=== PATIENT | female | born 1930 | race Caucasian/White ===

== ENCOUNTER 2020-02-21 15:15 | Observation (INO) ==
[2020-02-21 16:05] LABS: Basophils % 0.6 %; Eosinophils # 0.1 K/mcL (0.0-0.6); Eosinophils % 1.3 %; Hematocrit 31.5 % (35.3-44.9); Hemoglobin 10.2 g/dL (11.5-15.4); Immature Granulocytes % 0.4 % (0-4); Lymphocytes # 1.3 K/mcL (0.6-4.6); Lymphocytes % 18.6 %; Mean Corpuscular HGB Conc 32.4 g/dL (31.6-35.5); Mean Corpuscular Hemoglobin 30.1 pg (28.0-33.3); Mean Corpuscular Volume 92.9 fL (83.0-100.0); Mean Platelet Volume 10.6 fL (9.4-12.4); Monocytes # 0.8 K/mcL (0.0-1.3); Neutrophils # 4.7 K/mcL (1.6-8.9); Platelet Count 308 K/mcL (140-400); Red Blood Count 3.39 M/mcL (3.82-4.97); Red Cell Distribution Width 15.5 % (11.5-14.5); Segmented Neutrophils % 68.1 %; White Blood Count 6.9 K/mcL (4.3-11.1)
[2020-02-21 16:18] LABS: Bilirubin,Urine Negative (Negative); Blood,Urine Negative (Negative); Clarity,Urine Clear (Clear); Color,Urine Yellow (Yellow); Glucose,Urine (UA) Normal (Normal); Ketones,Urine Negative (Negative); Leukocyte Esterase,Urine Negative (Negative); Nitrite,Urine Negative (Negative); PH,Urine 7.5 pH Units (5.0-8.0); Protein,Urine Negative (Neg-Trace); Specific Gravity,Urine 1.015 (1.010-1.025); Urobilinogen,Urine Normal (Normal)
[2020-02-21 16:24] LABS: BUN/Creatinine Ratio 16 (6-26); Blood Urea Nitrogen 15 mg/dL (8-23); Calcium 9.4 mg/dL (8.6-10.3); Carbon Dioxide 29 mEq/L (23-29); Chloride 98 mEq/L (98-107); Glucose 63 mg/dL (70-105); Osmolality,Calculated 277 (280-300); Potassium 4.3 mEq/L (3.5-5.1); Sodium 134 mEq/L (136-145); eGFR For African Americans > 60 (> 60); eGFR For Non-African Americans 55 (> 60)
[2020-02-21 16:31] LABS: Troponin I 0.04 ng/mL (< 0.04)
[2020-02-21] MEDS ORDERED: Aspirin 81 MG TAB.CHEW PO STA (16:42)
[2020-02-21] MEDS ORDERED: Aspirin 81 MG TAB.CHEW ONE (16:57)
[2020-02-21] MEDS ORDERED: Ondansetron ODT 4 MG TAB.RAPDIS SL PRN (17:35)
[2020-02-21] MEDS ORDERED: Naloxone 0.4 MG/ML INJ IVP PRN (17:35)
[2020-02-21] MEDS: *HR* LORazepam 1 MG TABLET PO SCH (21:56)
[2020-02-22 04:32] LABS: Basophils # 0.1 K/mcL (0.0-0.2); Basophils % 0.8 %; Eosinophils # 0.2 K/mcL (0.0-0.6); Eosinophils % 3.1 %; Hematocrit 28.9 % (35.3-44.9); Hemoglobin 9.2 g/dL (11.5-15.4); Immature Granulocytes % 0.5 % (0-4); Lymphocytes # 2.1 K/mcL (0.6-4.6); Lymphocytes % 33.7 %; Mean Corpuscular HGB Conc 31.8 g/dL (31.6-35.5); Mean Corpuscular Hemoglobin 29.9 pg (28.0-33.3); Mean Corpuscular Volume 93.8 fL (83.0-100.0); Mean Platelet Volume 11.2 fL (9.4-12.4); Monocytes # 0.8 K/mcL (0.0-1.3); Monocytes % 13.6 %; Neutrophils # 2.9 K/mcL (1.6-8.9); Platelet Count 281 K/mcL (140-400); Red Blood Count 3.08 M/mcL (3.82-4.97); Red Cell Distribution Width 15.8 % (11.5-14.5); Segmented Neutrophils % 48.3 %; White Blood Count 6.1 K/mcL (4.3-11.1)
[2020-02-22 06:10] LABS: Calcium 8.9 mg/dL (8.6-10.3)
[2020-02-22] MEDS: *HR* LORazepam 1 MG TABLET PO SCH (07:57)
[2020-02-22] MEDS ORDERED: Artificial Tears SOLN 15 ML BOTTLE BOTH EYES PRN (08:06)
[2020-02-22] MEDS ORDERED: Folic Acid 1 MG TABLET PO SCH (09:00)
[2020-02-22] MEDS ORDERED: hydroCHLOROthiazide 25 MG TABLET PO SCH (09:00)
[2020-02-22] MEDS ORDERED: Aspirin Enteric Coated 81 MG Tablet PO SCH (09:00)
[2020-02-22] MEDS ORDERED: Cholecalciferol (D-3) 1,000 UNIT (25MCG) TABLET PO SCH (09:00)
[2020-02-22 09:48] LABS: Chol/HDL Ratio 5.8 (0-4.9)
[2020-02-22 10:48] VITALS: BP 95/41
== END 2020-02-22 12:15 | disposition other institution (70) ==
LOC: EMEROOPIK 15:15 → INPPIK 15:15
PROVIDERS: ADMIT Family Medicine; ATTEND Family Medicine

== ENCOUNTER 2020-10-30 11:03 | Observation (INO) ==
[2020-10-30] MEDS ORDERED: Isovue-370 500 ML BOTTLE IVP ONE (11:06)
[2020-10-30 11:45] LABS: Hematocrit 35.9 % (35.3-44.9); Hemoglobin 11.5 g/dL (11.5-15.4); Mean Corpuscular Hemoglobin 29.5 pg (28.0-33.3); Mean Corpuscular Volume 92.1 fL (83.0-100.0); Mean Platelet Volume 11.5 fL (9.4-12.4); Platelet Count 325 K/mcL (140-400); Red Cell Distribution Width 15.1 % (11.5-14.5); White Blood Count 12.5 K/mcL (4.3-11.1)
[2020-10-30 11:56] LABS: Activated Partial Thrombo Time 26.6 Seconds (26.0-36.0); INR 1.1; Prothrombin Time 12.8 Seconds (9.4-12.1)
[2020-10-30] MEDS ORDERED: *HR* Dextrose 50 % in Water (Syg) 50 ML SYRINGE IVP ONE (12:01)
[2020-10-30 12:05] LABS: BUN/Creatinine Ratio 15 (6-26); Blood Urea Nitrogen 17 mg/dL (8-23); Calcium 7.9 mg/dL (8.6-10.3); Carbon Dioxide 32 mEq/L (23-29); Chloride 94 mEq/L (98-107); Glucose 38 mg/dL (70-105); Osmolality,Calculated 282 (280-300); Potassium 3.4 mEq/L (3.5-5.1); Sodium 137 mEq/L (136-145); Troponin I < 0.03 ng/mL (< 0.04); eGFR For African Americans 57 (> 60); eGFR For Non-African Americans 47 (> 60)
[2020-10-30] MEDS ORDERED: *HR* Dextrose 50 % in Water (Syg) 50 ML SYRINGE ONE (12:05)
[2020-10-30] MEDS: D5% in 0.9% NACL 1,000 ML IVC SCH ×2 (12:51→18:42)
[2020-10-30] MEDS ORDERED: Acetaminophen 325 MG TABLET PO PRN (13:18)
[2020-10-30] MEDS ORDERED: Naloxone 0.4 MG/ML INJ IVP PRN (13:18)
[2020-10-30] MEDS ORDERED: *HR* Dextrose 50 % in Water (Vial) 50 ML VIAL IVP PRN (13:30)
[2020-10-30] MEDS ORDERED: Dextrose Gel 15 GM/37.5 ML TUBE PO PRN ×2 (13:30)
[2020-10-30] MEDS ORDERED: D5% in Water 1,000 ML IVC PRN (13:30)
[2020-10-30] MEDS ORDERED: Insulin LISPRO 300 UNITS/3 ML VIAL SUBQ SCH (16:30)
[2020-10-30 18:21] LABS: Bilirubin,Urine Negative (Negative); Blood,Urine Negative (Negative); Clarity,Urine Clear (Clear); Color,Urine Yellow (Yellow); Glucose,Urine (UA) Normal (Normal); Ketones,Urine Negative (Negative); Leukocyte Esterase,Urine Negative (Negative); Nitrite,Urine Negative (Negative); Protein,Urine Negative (Neg-Trace); Specific Gravity,Urine 1.015 (1.010-1.025); Urobilinogen,Urine Normal (Normal)
[2020-10-30 18:36] LABS: Amphetamine Screen,Urine Negative ng/mL (Cutoff=1000); Barbiturate Screen,Urine Negative ng/mL (Cutoff=200); Benzodiazepines Screen,Urine Negative ng/mL (Cutoff=200); Cannabinoid Screen,Urine Negative ng/mL (Cutoff = 50); Cocaine Screen,Urine Negative ng/mL (Cutoff= 300); Opiate Screen,Urine Negative ng/mL (Cutoff=300); Phencyclidine Screen,Urine Negative ng/mL (Cutoff=25)
[2020-10-31] MEDS: D5% in 0.9% NACL 1,000 ML IVC SCH (03:17)
[2020-10-31] MEDS ORDERED: Aspirin Enteric Coated 81 MG Tablet PO SCH (08:00)
[2020-10-31 08:49] LABS: Basophils # 0.1 K/mcL (0.0-0.2); Basophils % 0.6 %; Eosinophils # 0.3 K/mcL (0.0-0.6); Eosinophils % 3.2 %; Hematocrit 33.1 % (35.3-44.9); Hemoglobin 10.1 g/dL (11.5-15.4); Immature Granulocytes % 0.4 % (0-4); Lymphocytes # 3.4 K/mcL (0.6-4.6); Lymphocytes % 33.2 %; Mean Corpuscular HGB Conc 30.5 g/dL (31.6-35.5); Mean Corpuscular Hemoglobin 29.1 pg (28.0-33.3); Mean Corpuscular Volume 95.4 fL (83.0-100.0); Mean Platelet Volume 11.7 fL (9.4-12.4); Monocytes % 9.5 %; Neutrophils # 5.5 K/mcL (1.6-8.9); Platelet Count 293 K/mcL (140-400); Red Blood Count 3.47 M/mcL (3.82-4.97); Red Cell Distribution Width 15.4 % (11.5-14.5); Segmented Neutrophils % 53.1 %; White Blood Count 10.3 K/mcL (4.3-11.1)
[2020-10-31 09:06] LABS: Calcium 7.4 mg/dL (8.6-10.3); Potassium 3.8 mEq/L (3.5-5.1)
[2020-10-31] MEDS: Isosorbide MONOnitrate (24 HR) 30 MG TAB.ER.24H PO SCH (09:42)
[2020-10-31] MEDS: lisinopriL 20 MG TABLET PO SCH (09:42)
[2020-10-31] MEDS: Magnesium Oxide 400 MG TABLET PO SCH (09:42)
[2020-10-31] MEDS: Folic Acid 1 MG TABLET PO SCH (09:43)
[2020-10-31] MEDS: Insulin LISPRO 300 UNITS/3 ML VIAL SUBQ SCH ×3 (09:48→17:00)
[2020-10-31 15:32] LABS: Estimated Average Glucose 103 mg/dl; Hemoglobin A1C 5.2 %
[2020-11-01 07:43] VITALS: BP 170/76
[2020-11-01] MEDS: Insulin LISPRO 300 UNITS/3 ML VIAL SUBQ SCH ×2 (08:01→11:34)
[2020-11-01] MEDS: Folic Acid 1 MG TABLET PO SCH (08:07)
[2020-11-01] MEDS: Magnesium Oxide 400 MG TABLET PO SCH (08:08)
[2020-11-01] MEDS: Isosorbide MONOnitrate (24 HR) 30 MG TAB.ER.24H PO SCH (08:08)
[2020-11-01] MEDS: lisinopriL 20 MG TABLET PO SCH (08:08)
== END 2020-11-01 11:41 | disposition other institution (70) ==
LOC: INPPIK 11:03 → EMEROOPIK 11:03 → INPPIK 14:31
PROVIDERS: ADMIT Pharmacist; ATTEND Pharmacist

== ENCOUNTER 2020-10-31 16:10 | Inpatient (IN) ==
[2020-11-01] MEDS ORDERED: Dextrose Gel 15 GM/37.5 ML TUBE PO PRN ×2 (11:26)
[2020-11-01] MEDS ORDERED: D5% in Water 1,000 ML IVC PRN (11:26)
[2020-11-01] MEDS ORDERED: *HR* Dextrose 50 % in Water (Vial) 50 ML VIAL IVP PRN (11:26)
[2020-11-01] MEDS: Insulin LISPRO 300 UNITS/3 ML VIAL SUBQ SCH ×2 (11:59→16:49)
[2020-11-01 12:46] LABS: Basophils # 0.1 K/mcL (0.0-0.2); Basophils % 0.7 %; Eosinophils # 0.4 K/mcL (0.0-0.6); Eosinophils % 4.1 %; Hematocrit 30.7 % (35.3-44.9); Hemoglobin 9.7 g/dL (11.5-15.4); Immature Granulocytes % 0.3 % (0-4); Lymphocytes # 3.5 K/mcL (0.6-4.6); Lymphocytes % 37.3 %; Mean Corpuscular HGB Conc 31.6 g/dL (31.6-35.5); Mean Corpuscular Hemoglobin 29.5 pg (28.0-33.3); Mean Corpuscular Volume 93.3 fL (83.0-100.0); Mean Platelet Volume 11.2 fL (9.4-12.4); Monocytes # 0.8 K/mcL (0.0-1.3); Neutrophils # 4.6 K/mcL (1.6-8.9); Platelet Count 294 K/mcL (140-400); Red Blood Count 3.29 M/mcL (3.82-4.97); Red Cell Distribution Width 15.2 % (11.5-14.5); Segmented Neutrophils % 49.6 %; White Blood Count 9.4 K/mcL (4.3-11.1)
[2020-11-02] MEDS ORDERED: Acetaminophen 325 MG TABLET PO PRN (07:36)
[2020-11-02 07:40] LABS: Basophils # 0.1 K/mcL (0.0-0.2); Basophils % 0.9 %; Eosinophils # 0.4 K/mcL (0.0-0.6); Eosinophils % 5.5 %; Hematocrit 29.5 % (35.3-44.9); Hemoglobin 9.2 g/dL (11.5-15.4); Immature Granulocytes % 0.4 % (0-4); Lymphocytes % 38.3 %; Mean Corpuscular HGB Conc 31.2 g/dL (31.6-35.5); Mean Corpuscular Hemoglobin 29.3 pg (28.0-33.3); Mean Corpuscular Volume 93.9 fL (83.0-100.0); Mean Platelet Volume 11.2 fL (9.4-12.4); Monocytes # 0.8 K/mcL (0.0-1.3); Monocytes % 9.9 %; Neutrophils # 3.5 K/mcL (1.6-8.9); Platelet Count 254 K/mcL (140-400); Red Blood Count 3.14 M/mcL (3.82-4.97); Red Cell Distribution Width 15.1 % (11.5-14.5); White Blood Count 7.8 K/mcL (4.3-11.1)
[2020-11-02 07:56] LABS: BUN/Creatinine Ratio 18 (6-26); Blood Urea Nitrogen 19 mg/dL (8-23); Calcium 7.9 mg/dL (8.6-10.3); Carbon Dioxide 32 mEq/L (23-29); Chloride 104 mEq/L (98-107); Glucose 99 mg/dL (70-105); Osmolality,Calculated 292 (280-300); Potassium 4.1 mEq/L (3.5-5.1); Sodium 140 mEq/L (136-145); eGFR For African Americans > 60 (> 60); eGFR For Non-African Americans 50 (> 60)
[2020-11-02] MEDS: Insulin LISPRO 300 UNITS/3 ML VIAL SUBQ SCH ×3 (09:40→17:21)
[2020-11-02] MEDS: Cholecalciferol (D-3) 1,000 UNIT (25MCG) TABLET PO SCH (09:55)
[2020-11-02] MEDS: Magnesium Oxide 400 MG TABLET PO SCH (09:55)
[2020-11-02] MEDS: Cyanocobalamin (B-12) 1,000 MCG TABLET PO SCH (09:55)
[2020-11-02] MEDS: Isosorbide MONOnitrate (24 HR) 30 MG TAB.ER.24H PO SCH (09:55)
[2020-11-02] MEDS: Aspirin Enteric Coated 81 MG Tablet PO SCH (09:56)
[2020-11-02] MEDS: Folic Acid 1 MG TABLET PO SCH (09:56)
[2020-11-02] MEDS: lisinopriL 20 MG TABLET PO SCH (09:56)
[2020-11-03] MEDS: Folic Acid 1 MG TABLET PO SCH (07:34)
[2020-11-03] MEDS: Magnesium Oxide 400 MG TABLET PO SCH (07:35)
[2020-11-03] MEDS: Cyanocobalamin (B-12) 1,000 MCG TABLET PO SCH (07:35)
[2020-11-03] MEDS: Isosorbide MONOnitrate (24 HR) 30 MG TAB.ER.24H PO SCH (07:35)
[2020-11-03] MEDS: lisinopriL 20 MG TABLET PO SCH (07:35)
[2020-11-03] MEDS: Cholecalciferol (D-3) 1,000 UNIT (25MCG) TABLET PO SCH (07:35)
[2020-11-04] MEDS: lisinopriL 20 MG TABLET PO SCH (09:23)
[2020-11-04] MEDS: Cyanocobalamin (B-12) 1,000 MCG TABLET PO SCH (09:23)
[2020-11-04] MEDS: Aspirin Enteric Coated 81 MG Tablet PO SCH (09:23)
[2020-11-04] MEDS: Magnesium Oxide 400 MG TABLET PO SCH (09:24)
[2020-11-04] MEDS: Isosorbide MONOnitrate (24 HR) 30 MG TAB.ER.24H PO SCH (09:24)
[2020-11-04] MEDS: Cholecalciferol (D-3) 1,000 UNIT (25MCG) TABLET PO SCH (09:24)
[2020-11-04] MEDS: Folic Acid 1 MG TABLET PO SCH (09:25)
[2020-11-04] MEDS: Artificial Tears SOLN 15 ML BOTTLE BOTH EYES SCH (23:55)
[2020-11-05] MEDS: lisinopriL 20 MG TABLET PO SCH (08:37)
[2020-11-05] MEDS: Cholecalciferol (D-3) 1,000 UNIT (25MCG) TABLET PO SCH (08:37)
[2020-11-05] MEDS: Cyanocobalamin (B-12) 1,000 MCG TABLET PO SCH (08:37)
[2020-11-05] MEDS: Isosorbide MONOnitrate (24 HR) 30 MG TAB.ER.24H PO SCH (08:38)
[2020-11-05] MEDS: Magnesium Oxide 400 MG TABLET PO SCH (08:38)
[2020-11-05] MEDS: Folic Acid 1 MG TABLET PO SCH (08:38)
[2020-11-05] MEDS: Artificial Tears SOLN 15 ML BOTTLE BOTH EYES SCH ×4 (10:44→20:58)
[2020-11-06] MEDS: lisinopriL 20 MG TABLET PO SCH (08:15)
[2020-11-06] MEDS: Isosorbide MONOnitrate (24 HR) 30 MG TAB.ER.24H PO SCH (08:15)
[2020-11-06] MEDS: Folic Acid 1 MG TABLET PO SCH (08:15)
[2020-11-06] MEDS: Cholecalciferol (D-3) 1,000 UNIT (25MCG) TABLET PO SCH (08:15)
[2020-11-06] MEDS: Cyanocobalamin (B-12) 1,000 MCG TABLET PO SCH (08:15)
[2020-11-06] MEDS: Aspirin Enteric Coated 81 MG Tablet PO SCH (08:15)
[2020-11-06] MEDS: Artificial Tears SOLN 15 ML BOTTLE BOTH EYES SCH ×4 (08:16→20:17)
[2020-11-06] MEDS: Magnesium Oxide 400 MG TABLET PO SCH (08:16)
[2020-11-06 09:22] LABS: White Blood Count 9.6 K/mcL (4.3-11.1)
[2020-11-06 09:23] LABS: Basophils # 0.1 K/mcL (0.0-0.2); Basophils % 0.7 %; Eosinophils # 0.4 K/mcL (0.0-0.6); Eosinophils % 3.8 %; Hematocrit 31.6 % (35.3-44.9); Hemoglobin 9.9 g/dL (11.5-15.4); Immature Granulocytes % 0.8 % (0-4); Lymphocytes # 3.6 K/mcL (0.6-4.6); Lymphocytes % 37.7 %; Mean Corpuscular HGB Conc 31.3 g/dL (31.6-35.5); Mean Corpuscular Hemoglobin 29.2 pg (28.0-33.3); Mean Corpuscular Volume 93.2 fL (83.0-100.0); Mean Platelet Volume 11.2 fL (9.4-12.4); Monocytes # 0.8 K/mcL (0.0-1.3); Neutrophils # 4.7 K/mcL (1.6-8.9); Platelet Count 281 K/mcL (140-400); Red Blood Count 3.39 M/mcL (3.82-4.97); Red Cell Distribution Width 15.2 % (11.5-14.5)
[2020-11-06 09:41] LABS: BUN/Creatinine Ratio 12 (6-26); Blood Urea Nitrogen 11 mg/dL (8-23); Calcium 8.6 mg/dL (8.6-10.3); Carbon Dioxide 27 mEq/L (23-29); Chloride 104 mEq/L (98-107); Glucose 154 mg/dL (70-105); Osmolality,Calculated 290 (280-300); Potassium 3.8 mEq/L (3.5-5.1); Sodium 139 mEq/L (136-145); eGFR For African Americans > 60 (> 60); eGFR For Non-African Americans 56 (> 60)
[2020-11-07] MEDS: Magnesium Oxide 400 MG TABLET PO SCH (08:23)
[2020-11-07] MEDS: Isosorbide MONOnitrate (24 HR) 30 MG TAB.ER.24H PO SCH (08:23)
[2020-11-07] MEDS: lisinopriL 20 MG TABLET PO SCH (08:24)
[2020-11-07] MEDS: Folic Acid 1 MG TABLET PO SCH (08:24)
[2020-11-07] MEDS: Cyanocobalamin (B-12) 1,000 MCG TABLET PO SCH (08:24)
[2020-11-07] MEDS: Cholecalciferol (D-3) 1,000 UNIT (25MCG) TABLET PO SCH (08:24)
[2020-11-07] MEDS: Artificial Tears SOLN 15 ML BOTTLE BOTH EYES SCH ×4 (08:26→19:53)
[2020-11-08 06:54] VITALS: BP 186/86
[2020-11-08] MEDS: Magnesium Oxide 400 MG TABLET PO SCH (09:05)
[2020-11-08] MEDS: Aspirin Enteric Coated 81 MG Tablet PO SCH (09:06)
[2020-11-08] MEDS: Folic Acid 1 MG TABLET PO SCH (09:06)
[2020-11-08] MEDS: Cholecalciferol (D-3) 1,000 UNIT (25MCG) TABLET PO SCH (09:06)
[2020-11-08] MEDS: lisinopriL 20 MG TABLET PO SCH (09:06)
[2020-11-08] MEDS: Isosorbide MONOnitrate (24 HR) 30 MG TAB.ER.24H PO SCH (09:06)
[2020-11-08] MEDS: Cyanocobalamin (B-12) 1,000 MCG TABLET PO SCH (09:07)
[2020-11-08] MEDS: Artificial Tears SOLN 15 ML BOTTLE BOTH EYES SCH (09:09)
== END 2020-11-08 11:51 | disposition home health service (06) | DRG 945 ==
LOC: INPPIK 11-01 11:46
PROVIDERS: ADMIT Family Medicine; ATTEND Family Medicine